=== PATIENT | female | born 1970 | race Caucasian/White ===

== ENCOUNTER → 2018-03-02 | Outpatient (CLI) | payer OTHER | LOC: M RAD 07:02 | DX: S02.19XS Other fracture of base of skull, sequela (principal) | CPT/HCPCS: 70450 ==

== ENCOUNTER 2018-12-28 12:29 | Inpatient (IN) | payer OTHER ==
[~2018-12-28] VITALS: Ht 152.4 cm; Wt 107.2 kg
[2018-12-28] MEDS ORDERED: RA C PO (14:02)
[2018-12-28] MEDS ORDERED: PRED20TA PO (14:07)
[2018-12-28] MEDS ORDERED: PROP10TA56 PO (14:07)
[2018-12-28] MEDS ORDERED: IBUP200C25 PO (14:07)
[2018-12-28] MEDS ORDERED: ZOLO100T PO (14:07)
[2018-12-28] MEDS ORDERED: MELA3TAB49 PO (14:07)
[2018-12-28] MEDS ORDERED: RANI1TAB38 PO (14:07)
[2018-12-28] MEDS ORDERED: TRAZ1TAB10 PO (14:07)
[2018-12-28] MEDS ORDERED: methylPREDNISolone INJ 125 MG/2 ML VIAL (J2930) IV ONE (14:45)
[2018-12-28] MEDS ORDERED: diphenhydrAMINE INJ 50MG/ML VIAL (J1200) IV ONE (14:45)
[2018-12-28] MEDS ORDERED: NS 1,000 ML IV ONE ×2 (14:45→20:00)
[2018-12-28] MEDS ORDERED: FAMOTIDINE INJ 20MG/2ML VIAL (S0028) IVP ONE (14:45)
[2018-12-28 15:10] LABS: BASO % 0.1 % (0.0-1.0); HEMATOCRIT 46.4 % (36.0-47.0); HEMOGLOBIN 15.6 g/dl (12.0-15.5); LYMPH # 2.1 10^3/uL (1.5-4.5); LYMPH % 9.9 % (24.0-44.0); MEAN CORPUSCULAR HEMOGLOBIN 28.7 pg (27.0-33.0); MEAN CORPUSCULAR HGB CONC 33.6 g/dl (32.0-36.5); MEAN CORPUSCULAR VOLUME 85.3 fl (80.0-96.0); MONO # 0.8 10^3/uL (0.0-0.8); MONO % 3.7 % (0.0-5.0); NEUTROPHILS # 18.5 10^3/uL (1.8-7.7); NEUTROPHILS % 85.8 % (36.0-66.0); PLATELET COUNT, AUTOMATED 507 10^3/uL (150-450); RED BLOOD COUNT 5.44 10^6/uL (4.00-5.40); WHITE BLOOD COUNT 21.5 10^3/uL (4.0-10.0)
[2018-12-28 15:36] LABS: ALBUMIN 3.1 GM/DL (3.2-5.2); ALT/SGPT 18 U/L (12-78); BILIRUBIN,DIRECT < 0.1 MG/DL (0.0-0.2); BILIRUBIN,TOTAL 0.3 MG/DL (0.2-1.0); C REACTIVE PROTEIN QUANTITATIV 0.89 MG/DL (0.00-0.30); ERYTHROCYTE SEDIMENTATION RATE 2 mm/hr (0-20); LIPASE 113 U/L (73-393); TOTAL PROTEIN 6.3 GM/DL (6.4-8.2)
[2018-12-28 16:01] LABS: MONO REFLEX EBV COMP NEGATIVE (NEGATIVE)
[2018-12-28] MEDS ORDERED: GI COCKTAIL 50ML BTL(HYOSCYAMINE/MAALOX/LIDOCAINE VISCOUS)(1:3:1) PO ONE (18:45)
[2018-12-28] MEDS ORDERED: hydrOXYzine 25 MG TAB PO STA (19:50)
[2018-12-28 20:14] LABS: CALCIUM LEVEL 8.5 MG/DL (8.5-10.1); CREATININE FOR GFR 1.19 MG/DL (0.55-1.30); GLOMERULAR FILTRATION RATE 51.8 (>58); POTASSIUM SERUM 3.6 MEQ/L (3.5-5.1)
[2018-12-28] MEDS ORDERED: predniSONE 20 MG TAB PO ONE (22:15)
[2018-12-28] MEDS ORDERED: diphenhydrAMINE 50 MG CAP PO ONE (22:15)
[2018-12-28] MEDS ORDERED: FUROSEMIDE 40 MG/4 ML VIAL (J1940) IV ONE (23:15)
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
[2018-12-28] MEDS ORDERED: MOBI4TAB PO (23:29)
[2018-12-28] MEDS ORDERED: HYDR12CA PO (23:29)
[2018-12-28] MEDS: methylPREDNISolone INJ 40 MG/1 ML VIAL (J2920) IV SCH (23:39)
[2018-12-29 01:05] VITALS: BP 124/80
[2018-12-29] MEDS: FAMOTIDINE IV BAG 20 MG in APPROPRIATE DILUENT 1 EA IV SCH ×2 (02:33→15:08)
[2018-12-29 06:00] VITALS: BP 121/73
[2018-12-29] MEDS: methylPREDNISolone INJ 40 MG/1 ML VIAL (J2920) IV SCH ×3 (06:13→22:54)
[2018-12-29 06:15] LABS: BASO % 0.1 % (0.0-1.0); EOS % 0.1 % (0.0-3.0); HEMOGLOBIN 13.7 g/dl (12.0-15.5); LYMPH # 1.5 10^3/uL (1.5-4.5); MEAN CORPUSCULAR HEMOGLOBIN 28.3 pg (27.0-33.0); MEAN CORPUSCULAR HGB CONC 33.4 g/dl (32.0-36.5); MEAN CORPUSCULAR VOLUME 84.7 fl (80.0-96.0); MONO # 0.4 10^3/uL (0.0-0.8); MONO % 2.9 % (0.0-5.0); NEUTROPHILS # 11.3 10^3/uL (1.8-7.7); NEUTROPHILS % 85.5 % (36.0-66.0); PLATELET COUNT, AUTOMATED 461 10^3/uL (150-450); RED BLOOD COUNT 4.84 10^6/uL (4.00-5.40); WHITE BLOOD COUNT 13.2 10^3/uL (4.0-10.0)
[2018-12-29 07:12] LABS: CALCIUM LEVEL 8.5 MG/DL (8.5-10.1); CREATININE FOR GFR 1.06 MG/DL (0.55-1.30); GLOMERULAR FILTRATION RATE 59.2 (>58); POTASSIUM SERUM 2.7 MEQ/L (3.5-5.1)
[2018-12-29] MEDS: ENOXAPARIN 40 MG/0.4 ML SYRINGE (J1650) SC SCH (08:07)
[2018-12-29] MEDS: NYSTATIN 100,000 UNITS/GM TOPICAL PWD 15 GM TOP SCH ×2 (08:07→21:16)
[2018-12-29] MEDS: amLODIPine 5 MG TAB PO SCH (08:07)
[2018-12-29] MEDS ORDERED: POTASSIUM CHLORIDE 10 MEQ SR TABLET PO ONE (09:00)
[2018-12-29] MEDS ORDERED: diphenhydrAMINE 25 MG CAP PO SCH (09:00)
[2018-12-29] MEDS: KCL 10MEQ/100ML SWI (KRUN) 10 MEQ in APPROPRIATE DILUENT 1 EA IV ONE ×2 (09:48→09:51)
[2018-12-29] MEDS: diphenhydrAMINE INJ 50MG/ML VIAL (J1200) IV PRN ×2 (13:18→21:16)
[2018-12-29 14:00] VITALS: BP 131/67
--- NOTE | 2018-12-29 14:06 | IPNPDOC ---
Date Seen The patient was seen on 12/29/18. Progress Note SUBJECTIVE: Patient was crying from IV K this AM otherwise noted to still be itchy. Lips still swell but had improved. Diffuse hives persistent. OBJECTIVE PHYSICAL EXAMINATION: VITAL SIGNS: Please see below. General: No acute distress, Alert, famous edematous. Eyes: Normal sclera, EOMI, YOANNA HENT: Atraumatic, neck supple, moist mucous membranes, R. lower lip swelling. Cardiovascular: Normal rate, normal rhythm. Pulmonary: Clear to auscultation b/l, no wheezing GI: Soft, nontender, nondistended Skin: Warm and dry Neuro: CN grossly intact. No focal deficits. Strengths equal b/l. Psych: oriented x 3 LABORATORY DATA, IMAGING STUDIES, MICROBIOLOGY: Please see below. DVT prophylaxis ordered?: Lovenox ASSESSMENT AND PLAN: 1. Angioedema - Likely from Lisinopril and not Augmentin. Had been discontinued. - c/w benadryl and solumedrol. - Swelling improving but still diffuse hives and throat discomfort. - ENT consulted. f/u recommendations. 2. Leukocytosis - Likely 2/2 steroid use. 3. HTN - BP controlled. - Add another agent if needed. Lisinopril had been held. VS, I&O, 24H, Fishbone Vital Signs/I&O Vital Signs Date Time Temp Pulse Resp B/P (MAP) Pulse Ox O2 Delivery O2 Flow Rate FiO2 12/29/18 08:07 96 141/95 12/29/18 06:00 98.0 18 95 12/29/18 00:28 Room Air I&O- Last 24 Hours up to 6 AM 12/29/18 06:00 Intake Total 2050 ml Output Total 0 ml Balance 2050 ml Laboratory Data 24H LABS Laboratory Tests 2 12/28/18 14:55: Immature Granulocyte % (Auto) 0.5, White Blood Count 21.5H, Red Blood Count 5.44H, Hemoglobin 15.6H, Hematocrit 46.4, Mean Corpuscular Volume 85.3, Mean Corpuscular Hemoglobin 28.7, Mean Corpuscular Hemoglobin Concent 33.6, Red Cell Distribution Width 13.2, Platelet Count 507H, Neutrophils (%) (Auto) 85.8H, Lymphocytes (%) (Auto) 9.9L, Monocytes (%) (Auto) 3.7, Eosinophils (%) (Auto) 0.0, Basophils (%) (Auto) 0.1, Neutrophils # (Auto) 18.5H, Lymphocytes # (Auto) 2.1, Monocytes # (Auto) 0.8, Eosinophils # (Auto) 0.0, Basophils # (Auto) 0.0, Nucleated Red Blood Cells % (auto) 0.0, Erythrocyte Sedimentation Rate 2, Anion Gap 11, Glomerular Filtration Rate 51.8L, Blood Urea Nitrogen 19H, Creatinine 1.19, Sodium Level 141, Potassium Level 3.6, Chloride Level 103, Carbon Dioxide Level 27, Calcium Level 8.5, Aspartate Amino Transf (AST/SGOT) 18, Alanine Telles otransferase (ALT/SGPT) 18, Alkaline Phosphatase 82, Total Bilirubin 0.3, Direct Bilirubin < 0.1, C-Reactive Protein, Quantitative 0.89H, Total Protein 6.3L, Albumin 3.1L, Albumin/Globulin Ratio 0.97L, Lipase 113, Monoscreen NEGATIVE 12/28/18 16:43: 12/29/18 05:55: Immature Granulocyte % (Auto) 0.4, White Blood Count 13.2H, Red Blood Count 4.84, Hemoglobin 13.7, Hematocrit 41.0, Mean Corpuscular Volume 84.7, Mean Corpuscular Hemoglobin 28.3, Mean Corpuscular Hemoglobin Concent 33.4, Red Cell Distribution Width 13.2, Platelet Count 461H, Neutrophils (%) (Auto) 85.5H, Lymphocytes (%) (Auto) 11.0L, Monocytes (%) (Auto) 2.9, Eosinophils (%) (Auto) 0.1, Basophils (%) (Auto) 0.1, Neutrophils # (Auto) 11.3H, Lymphocytes # (Auto) 1.5, Monocytes # (Auto) 0.4, Eosinophils # (Auto) 0.0, Basophils # (Auto) 0.0, Nucleated Red Blood Cells % (auto) 0.0, Anion Gap 9, Glomerular Filtration Rate 59.2, Blood Urea Nitrogen 19H, Creatinine 1.06, Sodium Level 141, Potassium Level 2.7#*L, Chloride Level 102, Carbon Dioxide Level 30, Calcium Level 8.5 CBC/BMP Laboratory Tests 12/28/18 14:55 Red Blood Count 5.44 H, Mean Corpuscular Volume 85.3, Mean Corpuscular He moglobin 28.7, Mean Corpuscular Hemoglobin Concent 33.6, Red Cell Distribution Width 13.2, Neutrophils (%) (Auto) 85.8 H, Lymphocytes (%) (Auto) 9.9 L, Monocytes (%) (Auto) 3.7, Eosinophils (%) (Auto) 0.0, Basophils (%) (Auto) 0.1, Neutrophils # (Auto) 18.5 H, Lymphocytes # (Auto) 2.1, Monocytes # (Auto) 0.8, Eosinophils # (Auto) 0.0, Basophils # (Auto) 0.0, Calcium Level 8.5 12/29/18 05:55 Red Blood Count 4.84, Mean Corpuscular Volume 84.7, Mean Corpuscular Hemoglobin 28.3, Mean Corpuscular Hemoglobin Concent 33.4, Red Cell Distribution Width 13.2, Neutrophils (%) (Auto) 85.5 H, Lymphocytes (%) (Auto) 11.0 L, Monocytes (%) (Auto) 2.9, Eosinophils (%) (Auto) 0.1, Basophils (%) (Auto) 0.1, Neutrophils # (Auto) 11.3 H, Lymphocytes # (Auto) 1.5, Monocytes # (Auto) 0.4, Eosinophils # (Auto) 0.0, Basophils # (Auto) 0.0, Calcium Level 8.5 VIRAJ GARAY MD Dec 29, 2018 14:06
[2018-12-29] MEDS: SERTRALINE 100 MG TAB PO SCH (21:16)
[2018-12-29] MEDS: traZODone 50 MG TAB PO SCH (21:16)
[2018-12-29 22:00] VITALS: BP 127/72
[2018-12-30] MEDS: FAMOTIDINE IV BAG 20 MG in APPROPRIATE DILUENT 1 EA IV SCH ×2 (03:01→15:13)
[2018-12-30] MEDS: diphenhydrAMINE INJ 50MG/ML VIAL (J1200) IV PRN ×3 (05:34→22:01)
[2018-12-30 06:00] VITALS: BP 144/72
[2018-12-30] MEDS: methylPREDNISolone INJ 40 MG/1 ML VIAL (J2920) IV SCH ×3 (06:09→21:18)
--- NOTE | 2018-12-30 06:48 | ECGEPIP ---
[facility] - ED Test Date: 2018-12-28 Pat Name: CARMINE ENG Department: Room: [place] [address] Gender: Female Cook Seafood: LYN : 1970 Requested By: JANUSZ SCHMITZ [facility] Order Number: [id number] Reading MD: Juan Grijalva Measurements Intervals [place] Rate: 73 P: 66 ID: [id number] QRS: 1 QRSD: 77 T: QT: 419 QTc: 464 Interpretive Statements SINUS RHYTHM NONSPECIFIC T-WAVE ABNORMALITY SIMILAR TO 06/02/15 Electronically Signed on 12-30-2018 6:47:35 EDT by Juan Grijalva
[2018-12-30 06:52] LABS: HEMATOCRIT 37.5 % (36.0-47.0); HEMOGLOBIN 12.3 g/dl (12.0-15.5); LYMPH # 1.9 10^3/uL (1.5-4.5); LYMPH % 20.6 % (24.0-44.0); MEAN CORPUSCULAR HEMOGLOBIN 28.5 pg (27.0-33.0); MEAN CORPUSCULAR HGB CONC 32.8 g/dl (32.0-36.5); MEAN CORPUSCULAR VOLUME 86.8 fl (80.0-96.0); MONO # 0.5 10^3/uL (0.0-0.8); MONO % 4.8 % (0.0-5.0); NEUTROPHILS # 6.9 10^3/uL (1.8-7.7); NEUTROPHILS % 73.3 % (36.0-66.0); PLATELET COUNT, AUTOMATED 409 10^3/uL (150-450); RED BLOOD COUNT 4.32 10^6/uL (4.00-5.40); WHITE BLOOD COUNT 9.4 10^3/uL (4.0-10.0)
[2018-12-30 07:19] LABS: CALCIUM LEVEL 8.5 MG/DL (8.5-10.1); CREATININE FOR GFR 1.09 MG/DL (0.55-1.30); GLOMERULAR FILTRATION RATE 57.3 (>58); POTASSIUM SERUM 3.2 MEQ/L (3.5-5.1)
[2018-12-30] MEDS ORDERED: POTASSIUM CHLORIDE 10 MEQ SR TABLET PO ONE (09:00)
[2018-12-30] MEDS: ENOXAPARIN 40 MG/0.4 ML SYRINGE (J1650) SC SCH (09:16)
[2018-12-30] MEDS: hydroCHLOROthiazide 12.5 MG CAPSULE PO SCH (09:16)
[2018-12-30] MEDS: amLODIPine 5 MG TAB PO SCH (09:16)
[2018-12-30] MEDS: NYSTATIN 100,000 UNITS/GM TOPICAL PWD 15 GM TOP SCH ×2 (09:17→21:19)
--- NOTE | 2018-12-30 12:11 | IPNPDOC ---
Date Seen The patient was seen on 12/30/18. Progress Note SUBJECTIVE: Patient appeared much more comfortable today. States that the hives have mostly resolved the lip is still swollen and has been itching quite a bit. Overall trending favorably. Seen by ENT yesterday. OBJECTIVE PHYSICAL EXAMINATION: VITAL SIGNS: Please see below. General: No acute distress, Alert, famous edematous. Eyes: Normal sclera, EOMI, YOANNA HENT: Atraumatic, neck supple, moist mucous membranes, R. lower lip swelling. Cardiovascular: Normal rate, normal rhythm. Pulmonary: Clear to auscultation b/l, no wheezing GI: Soft, nontender, nondistended Skin: Warm and dry Neuro: CN grossly intact. No focal deficits. Strengths equal b/l. Psych: oriented x 3 LABORATORY DATA, IMAGING STUDIES, MICROBIOLOGY: Please see below. DVT prophylaxis ordered?: Lovenox ASSESSMENT AND PLAN: 1. Angioedema - Likely from Lisinopril and not Augmentin. Had been discontinued. - c/w benadryl and solumedrol. - Swelling and hives improving but still with significant itch. d - ENT evaluated. No significant obstruction noted. 2. Leukocytosis - Likely 2/2 steroid use. 3. HTN - BP controlled. - Add another agent if needed. Lisinopril had been held. VS, I&O, 24H, Fishbone Vital Signs/I&O Vital Signs Date Time Temp Pulse Resp B/P (MAP) Pulse Ox O2 Delivery O2 Flow Rate FiO2 12/30/18 09:16 86 139/81 12/30/18 06:00 97.0 16 94 12/29/18 00:28 Room Air I&O- Last 24 Hours up to 6 AM 12/30/18 06:00 Intake Total 900 ml Output Total 2300 ml Balance -1400 ml Laboratory Data 24H LABS Laboratory Tests 2 12/30/18 06:39: Immature Granulocyte % (Auto) 1.3, White Blood Count 9.4, Red Blood Count 4.32, Hemoglobin 12.3, Hematocrit 37.5, Mean Corpuscular Volume 86.8, Mean Corpuscular Hemoglobin 28.5, Mean Corpuscular Hemoglobin Concent 32.8, Red Cell Distribution Width 13.3, Platelet Count 409, Neutrophils (%) (Auto) 73.3H, Lymphocytes (%) (Auto) 20.6L, Monocytes (%) (Auto) 4.8, Eosinophils (%) (Auto) 0.0, Basophils (%) (Auto) 0.0, Neutrophils # (Auto) 6.9, Lymphocytes # (Auto) 1.9, Monocytes # (Auto) 0.5, Eosinophils # (Auto) 0.0, Basophils # (Auto) 0.0, Nucleated Red Blood Cells % (auto) 0.0, Anion Gap 6L, Glomerular Filtration Rate 57.3L, Blood Urea Nitrogen 17, Creatinine 1.09, Sodium Level 142, Potassium Level 3.2L, Chloride Level 105, Carbon Dioxide Level 31, Calcium Level 8.5 CBC/BMP Laboratory Tests 12/30/18 06:39 Red Blood Count 4.32, Mean Corpuscular Volume 86.8, Mean Corpuscular Hemoglobin 28.5, Mean Corpuscular Hemoglobin Concent 32.8, Red Cell Distribution Width 13.3, Neutrophils (%) (Auto) 73.3 H, Lymphocytes (%) (Auto) 20.6 L, Monocytes (%) (Auto) 4.8, Eosinophils (%) (Auto) 0.0, Basophils (%) (Auto) 0.0, Neutrophils # (Auto) 6.9, Lymphocytes # (Auto) 1.9, Monocytes # (Auto) 0.5, Eosinophils # (Auto) 0.0, Basophils # (Auto) 0.0, Calcium Level 8.5 VIRAJ GARAY MD Dec 30, 2018 12:11
[2018-12-30 14:00] VITALS: BP 140/67
[2018-12-30] MEDS: traZODone 50 MG TAB PO SCH (21:18)
[2018-12-30] MEDS: SERTRALINE 100 MG TAB PO SCH (21:18)
[2018-12-30 22:00] VITALS: BP 137/68
[2018-12-31] MEDS: FAMOTIDINE IV BAG 20 MG in APPROPRIATE DILUENT 1 EA IV SCH ×2 (02:20→14:05)
[2018-12-31 06:00] VITALS: BP 141/77
[2018-12-31] MEDS: diphenhydrAMINE INJ 50MG/ML VIAL (J1200) IV PRN ×3 (06:08→22:10)
[2018-12-31 06:20] LABS: BASO % 0.2 % (0.0-1.0); HEMATOCRIT 38.9 % (36.0-47.0); HEMOGLOBIN 12.8 g/dl (12.0-15.5); LYMPH # 1.9 10^3/uL (1.5-4.5); LYMPH % 17.5 % (24.0-44.0); MEAN CORPUSCULAR HGB CONC 32.9 g/dl (32.0-36.5); MONO # 0.6 10^3/uL (0.0-0.8); MONO % 5.3 % (0.0-5.0); NEUTROPHILS # 8.3 10^3/uL (1.8-7.7); NEUTROPHILS % 75.1 % (36.0-66.0); PLATELET COUNT, AUTOMATED 400 10^3/uL (150-450); RED BLOOD COUNT 4.42 10^6/uL (4.00-5.40)
[2018-12-31 06:40] LABS: BLOOD UREA NITROGEN 16 MG/DL (7-18); CALCIUM LEVEL 8.3 MG/DL (8.5-10.1); CARBON DIOXIDE LEVEL 30 MEQ/L (21-32); CHLORIDE LEVEL 105 MEQ/L (98-107); CREATININE FOR GFR 1.01 MG/DL (0.55-1.30); GLOMERULAR FILTRATION RATE > 60.0 (>58); GLUCOSE, FASTING 148 MG/DL (70-100); POTASSIUM SERUM 3.1 MEQ/L (3.5-5.1); SODIUM LEVEL 141 MEQ/L (136-145)
[2018-12-31] MEDS ORDERED: POTASSIUM CHLORIDE 10 MEQ SR TABLET PO ONE (08:30)
[2018-12-31] MEDS: ENOXAPARIN 40 MG/0.4 ML SYRINGE (J1650) SC SCH (09:04)
[2018-12-31] MEDS: amLODIPine 5 MG TAB PO SCH (09:04)
[2018-12-31] MEDS: hydroCHLOROthiazide 12.5 MG CAPSULE PO SCH (09:04)
[2018-12-31] MEDS: methylPREDNISolone INJ 40 MG/1 ML VIAL (J2920) IV SCH ×2 (09:04→20:40)
[2018-12-31] MEDS: NYSTATIN 100,000 UNITS/GM TOPICAL PWD 15 GM TOP SCH ×2 (09:05→20:41)
--- NOTE | 2018-12-31 13:34 | IPNPDOC ---
Date Seen The patient was seen on 12/31/18. Progress Note SUBJECTIVE: Patient reports continuing to feel better. Hives almost completely resolved but itching has been persistent and severe. Benadryl was decreased to 25IV q8 but had to increase back up to 50. OBJECTIVE PHYSICAL EXAMINATION: VITAL SIGNS: Please see below. General: No acute distress, Alert, famous edematous. Eyes: Normal sclera, EOMI, YOANNA HENT: Atraumatic, neck supple, moist mucous membranes, R. lower lip swelling. Cardiovascular: Normal rate, normal rhythm. Pulmonary: Clear to auscultation b/l, no wheezing GI: Soft, nontender, nondistended Skin: Warm and dry Neuro: CN grossly intact. No focal deficits. Strengths equal b/l. Psych: oriented x 3 LABORATORY DATA, IMAGING STUDIES, MICROBIOLOGY: Please see below. DVT prophylaxis ordered?: Lovenox ASSESSMENT AND PLAN: 1. Angioedema - Likely from Lisinopril and not Augmentin. Had been discontinued. - c/w benadryl and solumedrol. - Swelling and hives improving but still with significant itch. - ENT evaluated. No significant obstruction noted. - Keep benadryl dose and titrate down solumedrol. - Likely can be discharged in the next 24 to 48 hours with continued improvement. 2. Leukocytosis - Likely 2/2 steroid use. 3. HTN - BP controlled. - Add another agent if needed. Lisinopril had been held. VS, I&O, 24H, Fishbone Vital Signs/I&O Vital Signs Date Time Temp Pulse Resp B/P (MAP) Pulse Ox O2 Delivery O2 Flow Rate FiO2 12/31/18 09:04 93 138/74 12/31/18 06:00 97.0 18 96 12/29/18 00:28 Room Air I&O- Last 24 Hours up to 6 AM 12/31/18 06:00 Intake Total 1960 ml Output Total 3800 ml Balance -1840 ml Laboratory Data 24H LABS Laboratory Tests 2 12/31/18 06:00: Immature Granulocyte % (Auto) 1.9, White Blood Count 11.0H, Red Blood Count 4.42, Hemoglobin 12.8, Hematocrit 38.9, Mean Corpuscular Volume 88.0, Mean Corpuscular Hemoglobin 29.0, Mean Corpuscular Hemoglobin Concent 32.9, Red Cell Distribution Width 13.2, Platelet Count 400, Neutrophils (%) (Auto) 75.1H, Lymphocytes (%) (Auto) 17.5L, Monocytes (%) (Auto) 5.3H, Eosinophils (%) (Auto) 0.0, Basophils (%) (Auto) 0.2, Neutrophils # (Auto) 8.3H, Lymphocytes # (Auto) 1.9, Monocytes # (Auto) 0.6, Eosinophils # (Auto) 0.0, Basophils # (Auto) 0.0, Nucleated Red Blood Cells % (auto) 0.0, Anion Gap 6L, Glomerular Filtration Rate > 60.0, Blood Urea Nitrogen 16, Creatinine 1.01, Sodium Level 141, Potassium Level 3.1L, Chloride Level 105, Carbon Dioxide Level 30, Calcium Level 8.3L CBC/BMP Laboratory Tests 12/31/18 06:00 Red Blood Count 4.42, Mean Corpuscular Volume 88.0, Mean Corpuscular Hemoglobin 29.0, Mean Corpuscular Hemoglobin Concent 32.9, Red Cell Distribution Width 13.2, Neutrophils (%) (Auto) 75.1 H, Lymphocytes (%) (Auto) 17.5 L, Monocytes (%) (Auto) 5.3 H, Eosinophils (%) (Auto) 0.0, Basophils (%) (Auto) 0.2, Neutrophils # (Auto) 8.3 H, Lymphocytes # (Auto) 1.9, Monocytes # (Auto) 0.6, Eosinophils # (Auto) 0.0, Basophils # (Auto) 0.0, Calcium Level 8.3 L VIRAJ GARAY MD Dec 31, 2018 13:34
[2018-12-31 14:00] VITALS: BP 140/88
[2018-12-31 14:24] LABS: EBV AB TO NUCLEAR ANTIGEN >600.0 U/mL (0.0-17.9); EBV VIRAL CAPSID AG IgM <36.0 U/mL (0.0-35.9)
[2018-12-31] MEDS: traZODone 50 MG TAB PO SCH (20:40)
[2018-12-31] MEDS: SERTRALINE 100 MG TAB PO SCH (20:40)
[2018-12-31 22:00] VITALS: BP 144/73
[2019-01-01 00:06] LABS: C1 ESTER INHIB. NON FUNCTIONAL 29 mg/dL (21-39); C1 ESTERASE INHIB. FUNCTIONAL 92 (.)
[2019-01-01] MEDS: FAMOTIDINE IV BAG 20 MG in APPROPRIATE DILUENT 1 EA IV SCH ×2 (02:43→15:01)
[2019-01-01 06:00] VITALS: BP 133/84
[2019-01-01] MEDS: diphenhydrAMINE INJ 50MG/ML VIAL (J1200) IV PRN ×3 (06:28→23:13)
[2019-01-01 06:32] LABS: BASO % 0.1 % (0.0-1.0); HEMATOCRIT 39.6 % (36.0-47.0); LYMPH # 2.1 10^3/uL (1.5-4.5); MEAN CORPUSCULAR HEMOGLOBIN 28.8 pg (27.0-33.0); MEAN CORPUSCULAR HGB CONC 32.8 g/dl (32.0-36.5); MEAN CORPUSCULAR VOLUME 87.8 fl (80.0-96.0); MONO # 0.8 10^3/uL (0.0-0.8); MONO % 6.9 % (0.0-5.0); NEUTROPHILS # 8.7 10^3/uL (1.8-7.7); NEUTROPHILS % 73.8 % (36.0-66.0); PLATELET COUNT, AUTOMATED 414 10^3/uL (150-450); RED BLOOD COUNT 4.51 10^6/uL (4.00-5.40); WHITE BLOOD COUNT 11.7 10^3/uL (4.0-10.0)
[2019-01-01 06:59] LABS: BLOOD UREA NITROGEN 14 MG/DL (7-18); CALCIUM LEVEL 8.3 MG/DL (8.5-10.1); CARBON DIOXIDE LEVEL 31 MEQ/L (21-32); CHLORIDE LEVEL 103 MEQ/L (98-107); GLOMERULAR FILTRATION RATE > 60.0 (>58); GLUCOSE, FASTING 128 MG/DL (70-100); POTASSIUM SERUM 3.2 MEQ/L (3.5-5.1); SODIUM LEVEL 141 MEQ/L (136-145)
[2019-01-01] MEDS ORDERED: POTASSIUM CHLORIDE 10 MEQ SR TABLET PO ONE (07:30)
[2019-01-01] MEDS: methylPREDNISolone INJ 40 MG/1 ML VIAL (J2920) IV SCH (07:52)
[2019-01-01] MEDS: ENOXAPARIN 40 MG/0.4 ML SYRINGE (J1650) SC SCH (07:52)
[2019-01-01] MEDS: hydroCHLOROthiazide 12.5 MG CAPSULE PO SCH (07:53)
[2019-01-01] MEDS: NYSTATIN 100,000 UNITS/GM TOPICAL PWD 15 GM TOP SCH ×2 (07:53→20:15)
[2019-01-01] MEDS: amLODIPine 5 MG TAB PO SCH (07:53)
--- NOTE | 2019-01-01 11:02 | IPNPDOC ---
Date Seen The patient was seen on 01/01/19. Progress Note SUBJECTIVE: Patient reports swelling had improved but itching is persistent and severe, particularly at night. No acute events reported overnight. Telemetry was taken off due to increase itching but no events while patient was on it. OBJECTIVE PHYSICAL EXAMINATION: VITAL SIGNS: Please see below. General: No acute distress, Alert, famous edematous. Eyes: Normal sclera, EOMI, YOANNA HENT: Atraumatic, neck supple, moist mucous membranes Cardiovascular: Normal rate, normal rhythm. Pulmonary: Clear to auscultation b/l, no wheezing GI: Soft, nontender, nondistended Skin: Warm and dry. Excoriations in multiple sites including chest, arms and LE from scratching. Neuro: CN grossly intact. No focal deficits. Strengths equal b/l. Psych: oriented x 3 LABORATORY DATA, IMAGING STUDIES, MICROBIOLOGY: Please see below. DVT prophylaxis ordered?: Lovenox ASSESSMENT AND PLAN: 1. Angioedema - Likely from Lisinopril and not Augmentin. Had been discontinued. - c/w benadryl and solumedrol. - Swelling and hives improving but still with significant itch. - ENT evaluated. No significant obstruction noted. - Keep benadryl dose and titrate down solumedrol. - Will aim to discharge tomorrow on PO benadryl and prednisone. 2. Leukocytosis - Likely 2/2 steroid use. 3. HTN - BP controlled. - Add another agent if needed. Lisinopril had been held. VS, I&O, 24H, Fishbone Vital Signs/I&O Vital Signs Date Time Temp Pulse Resp B/P (MAP) Pulse Ox O2 Delivery O2 Flow Rate FiO2 01/01/19 07:53 76 133/84 01/01/19 06:00 96.4 15 96 12/29/18 00:28 Room Air I&O- Last 24 Hours up to 6 AM 01/01/19 06:00 Intake Total 1050 ml Output Total 1425 ml Balance -375 ml Laboratory Data 24H LABS Laboratory Tests 2 01/01/19 05:49: Immature Granulocyte % (Auto) 1.2, White Blood Count 11.7H, Red Blood Count 4.51, Hemoglobin 13.0, Hematocrit 39.6, Mean Corpuscular Volume 87.8, Mean Corpuscular Hemoglobin 28.8, Mean Corpuscular Hemoglobin Concent 32.8, Red Cell Distribution Width 13.3, Platelet Count 414, Neutrophils (%) (Auto) 73.8H, Lymphocytes (%) (Auto) 18.0L, Monocytes (%) (Auto) 6.9H, Eosinophils (%) (Auto) 0.0, Basophils (%) (Auto) 0.1, Neutrophils # (Auto) 8.7H, Lymphocytes # (Auto) 2.1, Monocytes # (Auto) 0.8, Eosinophils # (Auto) 0.0, Basophils # (Auto) 0.0, Nucleated Red Blood Cells % (auto) 0.0, Anion Gap 7L, Glomerular Filtration Rate > 60.0, Blood Urea Nitrogen 14, Creatinine 0.90, Sodium Level 141, Potassium Le christopher 3.2L, Chloride Level 103, Carbon Dioxide Level 31, Calcium Level 8.3L CBC/BMP Laboratory Tests 01/01/19 05:49 Red Blood Count 4.51, Mean Corpuscular Volume 87.8, Mean Corpuscular Hemoglobin 28.8, Mean Corpuscular Hemoglobin Concent 32.8, Red Cell Distribution Width 13.3, Neutrophils (%) (Auto) 73.8 H, Lymphocytes (%) (Auto) 18.0 L, Monocytes (%) (Auto) 6.9 H, Eosinophils (%) (Auto) 0.0, Basophils (%) (Auto) 0.1, Neutrophils # (Auto) 8.7 H, Lymphocytes # (Auto) 2.1, Monocytes # (Auto) 0.8, Eosinophils # (Auto) 0.0, Basophils # (Auto) 0.0, Calcium Level 8.3 L VIRAJ GARAY MD Jan 01, 2019 11:02
[2019-01-01 14:00] VITALS: BP 141/77
--- NOTE | 2019-01-01 14:13 | CR ---
DATE OF ADMISSION: 01/01/2019 Ms. Diaz is a 48-year-old lady who presented with a history of swelling of her lips and mouth. This started after she took ampicillin for a problem with her throat. She has had previous dental work done. She presented with swelling of her lips, worse on the right side. This had improved. She felt like there was something lower down in her throat. She was able to swallow well. She had no problems with her breathing. PHYSICAL EXAMINATION: She has a bit of edema of her lower lip on the right side. Tongue looks normal. Examination of the oropharynx, hypopharynx and larynx all look normal, as viewed by nasopharyngolaryngoscopy. IMPRESSION AND PLAN: 1. Allergic angioedema. This is improving on the present treatment. I will follow her as necessary.
[2019-01-01] MEDS: traZODone 50 MG TAB PO SCH (20:14)
[2019-01-01] MEDS: SERTRALINE 100 MG TAB PO SCH (20:14)
[2019-01-01 22:00] VITALS: BP 131/64
[2019-01-02] MEDS: FAMOTIDINE IV BAG 20 MG in APPROPRIATE DILUENT 1 EA IV SCH ×2 (02:40→15:49)
[2019-01-02 06:00] VITALS: BP 122/72
[2019-01-02 06:34] LABS: BASO % 0.1 % (0.0-1.0); EOS # 0.1 10^3/uL (0.0-0.50); EOS % 0.9 % (0.0-3.0); HEMATOCRIT 39.9 % (36.0-47.0); LYMPH # 4.3 10^3/uL (1.5-4.5); LYMPH % 35.6 % (24.0-44.0); MEAN CORPUSCULAR HEMOGLOBIN 28.3 pg (27.0-33.0); MEAN CORPUSCULAR HGB CONC 32.6 g/dl (32.0-36.5); MEAN CORPUSCULAR VOLUME 86.9 fl (80.0-96.0); MONO # 0.7 10^3/uL (0.0-0.8); MONO % 5.8 % (0.0-5.0); NEUTROPHILS # 6.8 10^3/uL (1.8-7.7); NEUTROPHILS % 56.8 % (36.0-66.0); PLATELET COUNT, AUTOMATED 396 10^3/uL (150-450); RED BLOOD COUNT 4.59 10^6/uL (4.00-5.40)
[2019-01-02 07:09] LABS: BLOOD UREA NITROGEN 14 MG/DL (7-18); CALCIUM LEVEL 8.6 MG/DL (8.5-10.1); CARBON DIOXIDE LEVEL 33 MEQ/L (21-32); CHLORIDE LEVEL 102 MEQ/L (98-107); CREATININE FOR GFR 0.99 MG/DL (0.55-1.30); GLOMERULAR FILTRATION RATE > 60.0 (>58); GLUCOSE, FASTING 101 MG/DL (70-100); POTASSIUM SERUM 2.9 MEQ/L (3.5-5.1); SODIUM LEVEL 142 MEQ/L (136-145)
[2019-01-02] MEDS ORDERED: POTASSIUM CHLORIDE 10 MEQ SR TABLET PO ONE ×2 (07:45→10:00)
[2019-01-02 08:18] LABS: MAGNESIUM LEVEL 2.4 MG/DL (1.8-2.4)
[2019-01-02] MEDS: amLODIPine 5 MG TAB PO SCH (09:00)
[2019-01-02] MEDS ORDERED: methylPREDNISolone INJ 40 MG/1 ML VIAL (J2920) IV SCH (09:00)
[2019-01-02] MEDS: hydroCHLOROthiazide 12.5 MG CAPSULE PO SCH (09:28)
[2019-01-02] MEDS: predniSONE 20 MG TAB PO SCH (09:28)
[2019-01-02] MEDS: diphenhydrAMINE 50 MG CAP PO PRN ×3 (09:28→22:51)
[2019-01-02] MEDS: ENOXAPARIN 40 MG/0.4 ML SYRINGE (J1650) SC SCH (09:28)
[2019-01-02] MEDS: NYSTATIN 100,000 UNITS/GM TOPICAL PWD 15 GM TOP SCH ×2 (09:29→20:55)
[2019-01-02] MEDS: ACETAMINOPHEN TAB 650MG DOSE (2X325MG) PO PRN ×2 (11:53→20:53)
--- NOTE | 2019-01-02 13:51 | IPNPDOC ---
Date Seen The patient was seen on 01/02/19. Progress Note SUBJECTIVE: Patient still complaints of severe itch, although better. Wants to switch to PO meds today but afraid of going home as she does not know how she would tolerate it. Plan to switch steroids and benadryl to PO and observe with plan to d/c in AM. OBJECTIVE PHYSICAL EXAMINATION: VITAL SIGNS: Please see below. General: No acute distress, Alert, famous edematous. Eyes: Normal sclera, EOMI, YOANNA HENT: Atraumatic, neck supple, moist mucous membranes Cardiovascular: Normal rate, normal rhythm. Pulmonary: Clear to auscultation b/l, no wheezing GI: Soft, nontender, nondistended Skin: Warm and dry. Excoriations in multiple sites including chest, arms and LE from scratching. Neuro: CN grossly intact. No focal deficits. Strengths equal b/l. Psych: oriented x 3 LABORATORY DATA, IMAGING STUDIES, MICROBIOLOGY: Please see below. DVT prophylaxis ordered?: Lovenox ASSESSMENT AND PLAN: 1. Angioedema - Likely from Lisinopril and not Augmentin. Had been discontinued. - c/w benadryl and solumedrol. - Swelling and hives improving but still with significant itch. - ENT evaluated. No significant obstruction noted. - Keep benadryl dose and titrate down solumedrol. - Will aim to discharge tomorrow on PO benadryl and prednisone. 2. Leukocytosis - Likely 2/2 steroid use. 3. HTN - BP controlled. - Started on Norvasc 5 mg, need this on discharge. Lisinopril and HCTZ had been held. 4. Hypokalemia - Persistent. Mg noted to be normal. - Likely 2/2 HCTZ. Had been discontinued. - Can likely discharge with 20-40 mg PO K daily and to follow up with PMD for BMP check upon discharge. VS, I&O, 24H, Fishbone Vital Signs/I&O Vital Signs Date Time Temp Pulse Resp B/P (MAP) Pulse Ox O2 Delivery O2 Flow Rate FiO2 01/02/19 09:00 100 136/76 01/02/19 06:00 97.1 15 94 12/29/18 00:28 Room Air I&O- Last 24 Hours up to 6 AM 01/02/19 06:00 Intake Total 2680 ml Output Total 800 ml Balance 1880 ml Laboratory Data 24H LABS Laboratory Tests 2 01/02/19 05:43: Immature Granulocyte % (Auto) 0.8, White Blood Count 12.0H, Red Blood Count 4.59, Hemoglobin 13.0, Hematocrit 39.9, Mean Corpuscular Volume 86.9, Mean Cor puscular Hemoglobin 28.3, Mean Corpuscular Hemoglobin Concent 32.6, Red Cell Distribution Width 13.6, Platelet Count 396, Neutrophils (%) (Auto) 56.8, Lymphocytes (%) (Auto) 35.6, Monocytes (%) (Auto) 5.8H, Eosinophils (%) (Auto) 0.9, Basophils (%) (Auto) 0.1, Neutrophils # (Auto) 6.8, Lymphocytes # (Auto) 4.3, Monocytes # (Auto) 0.7, Eosinophils # (Auto) 0.1, Basophils # (Auto) 0.0, Nucleated Red Blood Cells % (auto) 0.0, Anion Gap 7L, Glomerular Filtration Rate > 60.0, Blood Urea Nitrogen 14, Creatinine 0.99, Sodium Level 142, Potassium Level 2.9*L, Chloride Level 102, Carbon Dioxide Level 33H, Calcium Level 8.6, Magnesium Level 2.4 CBC/BMP Laboratory Tests 01/02/19 05:43 Red Blood Count 4.59, Mean Corpuscular Volume 86.9, Mean Corpuscular Hemoglobin 28.3, Mean Corpuscular Hemoglobin Concent 32.6, Red Cell Distribution Width 13.6, Neutrophils (%) (Auto) 56.8, Lymphocytes (%) (Auto) 35.6, Monocytes (%) (Auto) 5.8 H, Eosinophils (%) (Auto) 0.9, Basophils (%) (Auto) 0.1, Neutrophils # (Auto) 6.8, Lymphocytes # (Auto) 4.3, Monocytes # (Auto) 0.7, Eosinophils # (Auto) 0.1, Basophils # (Auto) 0.0, Calcium Level 8.6 VIRAJ GARAY MD Jan 02, 2019 13:51
[2019-01-02 14:00] VITALS: BP 153/85
[2019-01-02] MEDS: SERTRALINE 100 MG TAB PO SCH (20:54)
[2019-01-02] MEDS: traZODone 50 MG TAB PO SCH (20:54)
[2019-01-02 22:00] VITALS: BP 138/77
[2019-01-03] MEDS: FAMOTIDINE IV BAG 20 MG in APPROPRIATE DILUENT 1 EA IV SCH (03:28)
[2019-01-03 06:00] VITALS: BP 147/81
[2019-01-03 07:15] LABS: BASO % 0.2 % (0.0-1.0); EOS # 0.1 10^3/uL (0.0-0.50); EOS % 1.1 % (0.0-3.0); HEMATOCRIT 38.2 % (36.0-47.0); HEMOGLOBIN 12.5 g/dl (12.0-15.5); LYMPH # 3.8 10^3/uL (1.5-4.5); LYMPH % 34.2 % (24.0-44.0); MEAN CORPUSCULAR HEMOGLOBIN 28.5 pg (27.0-33.0); MEAN CORPUSCULAR HGB CONC 32.7 g/dl (32.0-36.5); MONO # 0.6 10^3/uL (0.0-0.8); MONO % 5.5 % (0.0-5.0); NEUTROPHILS # 6.5 10^3/uL (1.8-7.7); NEUTROPHILS % 58.5 % (36.0-66.0); PLATELET COUNT, AUTOMATED 373 10^3/uL (150-450); RED BLOOD COUNT 4.39 10^6/uL (4.00-5.40); WHITE BLOOD COUNT 11.2 10^3/uL (4.0-10.0)
[2019-01-03 07:47] LABS: BLOOD UREA NITROGEN 13 MG/DL (7-18); CALCIUM LEVEL 8.4 MG/DL (8.5-10.1); CARBON DIOXIDE LEVEL 33 MEQ/L (21-32); CHLORIDE LEVEL 103 MEQ/L (98-107); CREATININE FOR GFR 0.89 MG/DL (0.55-1.30); GLOMERULAR FILTRATION RATE > 60.0 (>58); GLUCOSE, FASTING 105 MG/DL (70-100); POTASSIUM SERUM 3.2 MEQ/L (3.5-5.1); SODIUM LEVEL 142 MEQ/L (136-145)
[2019-01-03] MEDS ORDERED: POTASSIUM CHLORIDE 10 MEQ SR TABLET PO ONE (08:00)
[2019-01-03] MEDS: ENOXAPARIN 40 MG/0.4 ML SYRINGE (J1650) SC SCH ×2 (08:19→09:00)
[2019-01-03] MEDS: ACETAMINOPHEN TAB 650MG DOSE (2X325MG) PO PRN (08:20)
[2019-01-03] MEDS: predniSONE 20 MG TAB PO SCH (08:20)
[2019-01-03] MEDS: diphenhydrAMINE 50 MG CAP PO PRN (08:21)
[2019-01-03 08:25] VITALS: BP 142/80
[2019-01-03] MEDS: amLODIPine 5 MG TAB PO SCH (08:25)
[2019-01-03] MEDS: NYSTATIN 100,000 UNITS/GM TOPICAL PWD 15 GM TOP SCH (08:29)
[2019-01-03] MEDS ORDERED: AMLO5TAB6 PO (11:20)
[2019-01-03] MEDS ORDERED: PRED20TA PO ×2 (11:20→12:54)
[2019-01-03] MEDS ORDERED: DIPH50CA PO (11:20)
[2019-01-03] MEDS ORDERED: POTA1TAB14 PO (11:22)
--- NOTE | 2019-01-03 22:45 | IPNPDOC ---
Subjective Date Seen The patient was seen on 01/03/19. Subjective Chief Complaint/HPI 48f with hx of anxiety, htn, p/w urticaria and angioedema. felt to be due to either amoxicillin or lisinopril. both have been dced. pt then became hypokalemic and hctz was also dced. She feels better today on oral steroids with only some itching in her palms. General: Reports: Normal Appetite; Denies: Chills, Night Sweats, Fatigue, Malaise Constitutional: Denies: Chills, Fever, Night Sweats Eyes: Denies: Pain, Vision change ENT: Reports: Other Symptoms Skin: Reports: Rash, Itching Pulmonary: Denies: Dyspnea, Cough Cardiovascular: Denies: Chest Pain, Palpitations, Orthopnea, Paroxysmal Noc. Dyspnea, Lt Headedness Gastrointestinal: Denies: Nausea, Vomiting, Abdominal Pain, Diarrhea, Constipation Genitourinary: Denies: Dysuria, Frequency, Incontinence, Retention Hematologic: Denies: Bruising, Bleeding Excessively Musculoskeletal: Denies: Neck Pain, Back Pain, Joint Pain, Muscle Pain, Spasms Neurological: Denies: Weakness, Numbness, Change in speech, Confusion Psych: Reports: Mood Normal; Denies: Depression, Memory Issues Objective Physical Examination General Exam: Positive: Alert, Cooperative, No Acute Distress Eye Exam: Positive: PERRLA, EOMI; Negative: Sclera icteric ENT Exam: Positive: Tongue Midline, Other ENT (lips swollen) Neck Exam: Positive: Supple; Negative: JVD, thyromegaly Chest Exam: Positive: Clear to auscultation, Normal air movement Heart Exam: Positive: Rate Normal, Regular Rhythm, Normal S1, Normal S2; Negative: Murmurs, Rubs Abdomen Exam: Positive: Normal bowel sounds, Soft; Negative: Tenderness, Hepatospenomegaly Extremity Exam: Positive: Edema; Negative: Clubbing, Cyanosis, Normal pulses, Tenderness, Swelling, Other Skin Exam: Positive: Rash (hives all over the body more in abdomen and legs. ), Breakdown (lower abdomen intertriginous fungal infection), Lesion Neuro Exam: Positive: Normal Gait, Normal Speech, Reflexes 2+ Psych Exam: Positive: Anxiety, Memory Intact, Oriented x 3 Assessment /Plan Assessment 48f p/w hives and angioedema improved continue prednisone taper and benadryl hypokalemia improving with supplementation and off hctz dced home with kcl to follow up in a few days to check chemistry htn continue bb and norvasc dced home Plan/VTE VTE Prophylaxis Ordered?: Yes VS, [facility]O, [facility] Vital Signs Date Time Temp Pulse Resp B/P (MAP) Pulse Ox O2 Delivery O2 Flow Rate FiO2 01/03/19 08:25 142/80 01/03/19 06:00 97.5 68 16 96 12/29/18 00:28 Room Air I&O- Last 24 Hours up to 6 AM 01/03/19 06:00 Intake Total 2020 ml Output Total 2850 ml Balance -830 ml Laboratory Data 24H LABS Laboratory Tests 2 01/03/19 07:00: Immature Granulocyte % (Auto) 0.5, White Blood Count 11.2H, Red Blood Count 4.39, Hemoglobin 12.5, Hematocrit 38.2, Mean Corpuscular Volume 87.0, Mean Corpuscular Hemoglobin 28.5, Mean Corpuscular Hemoglobin Concent 32.7, Red Cell Distribution Width 13.6, Platelet Count 373, Neutrophils (%) (Auto) 58.5, Lymphocytes (%) (Auto) 34.2, Monocytes (%) (Auto) 5.5H, Eosinophils (%) (Auto) 1.1, Basophils (%) (Auto) 0.2, Neutrophils # (Auto) 6.5, Lymphocytes # (Auto) 3.8, Monocytes # (Auto) 0.6, Eosinophils # (Auto) 0.1, Basophils # (Auto) 0.0, Nucleated Red Blood Cells % (auto) 0.0, Anion Gap 6L, Glomerular Filtration Rate > 60.0, Blood Urea Nitrogen 13, Creatinine 0.89, Sodium Level 142, Potassium Level 3.2L, Chloride Level 103, Carbon Dioxide Level 33H, Calcium Level 8.4L CBC/BMP Laboratory Tests 01/03/19 07:00 Red Blood Count 4.39, Mean Corpuscular Volume 87.0, Mean Corpuscular Hemoglobin 28.5, Mean Corpuscular Hemoglobin Concent 32.7, Red Cell Distribution Width 13.6, Neutrophils (%) (Auto) 58.5, Lymphocytes (%) (Auto) 34.2, Monocytes (%) (Auto) 5.5 H, Eosinophils (%) (Auto) 1.1, Basophils (%) (Auto) 0.2, Neutrophils # (Auto) 6.5, Lymphocytes # (Auto) 3.8, Monocytes # (Auto) 0.6, Eosinophils # (A uto) 0.1, Basophils # (Auto) 0.0, Calcium Level 8.4 L GAGANDEEP BEAL MD Jan 03, 2019 22:44
== END 2019-01-03 13:20 | disposition home or self-care (01) | DRG 916 ==
LOC: M ED 12:29 → M ED INP 23:14 → M MSPAV 12-29 01:10
PROVIDERS: ADMIT Internal Medicine Nephrology; ATTEND Hospitalist
DX: T78.3XXA Angioneurotic edema, initial encounter (principal); T43.4X5A Adverse effect of butyrophenone and thiothixene neuroleptics, initial encounter; F43.10 Post-traumatic stress disorder, unspecified; T36.0X5A Adverse effect of penicillins, initial encounter; E87.6 Hypokalemia; F34.1 Dysthymic disorder; R00.2 Palpitations; G43.909 Migraine, unspecified, not intractable, without status migrainosus; I10 Essential (primary) hypertension; Z86.73 Personal history of transient ischemic attack (TIA), and cerebral infarction without residual deficits; Z79.899 Other long term (current) drug therapy; Z88.0 Allergy status to penicillin; Z88.8 Allergy status to other drugs, medicaments and biological substances

== ENCOUNTER → 2019-04-03 | Outpatient (CLI) | payer OTHER ==
[~2019-04-03] MED LIST: AMLO5TAB6 PO; DIPH50CA PO; GASTROGRAFIN SOLUTION 30ML (Q9963) As Ordered ONE; HYDR12CA PO; IBUP200C25 PO; ISOVUE-370 76% 100ML VIAL (Q9967) As Ordered ONE; MELA3TAB49 PO; MOBI4TAB PO; POTA1TAB14 PO; PRED20TA PO; PROP10TA56 PO; RA C PO; RANI1TAB38 PO; TRAZ1TAB10 PO; ZOLO100T PO
--- NOTE | 2019-04-04 04:51 | REP ---
Clinical: Left lower quadrant pain. Technique: Axial contrast enhanced images from the lung bases to the pubic symphysis using oral (per protocol) and 100 ml Isovue 370 intravenous contrast material with precontrast images of the abdomen as well as coronal and sagittal re-formations. Comparison: 04/27/2011 Findings: Lung bases are clear. Visualized heart and pericardium normal. Fatty infiltration to the liver noted without focal hepatic lesion. Prior cholecystectomy. Spleen, pancreas, bilateral adrenal glands and kidneys are normal. The enteric system is without obstruction or acute inflammatory process. Pelvis demonstrates collapsed grossly normal bladder and suspected subtle myomatous changes to the uterus. No ascites. No free air. No adenopathy. Abdominal aorta without aneurysm or dissection. Musculoskeletal structures are intact. Impression: No acute abdominopelvic pathology appreciated. Subtle myomatous changes to the uterus. Electronically Signed by Tejas Monteiro MD 04/04/2019 04:42 A
== END ==
LOC: M RAD 15:57
PROVIDERS: ATTEND Family Medicine
DX: R10.32 Left lower quadrant pain (principal)

== ENCOUNTER → 2019-05-21 | Outpatient (CLI) | payer OTHER ==
[~2019-05-21] MED LIST changes: -GASTROGRAFIN SOLUTION 30ML (Q9963) As Ordered ONE; -ISOVUE-370 76% 100ML VIAL (Q9967) As Ordered ONE
--- NOTE | 2019-05-22 03:03 | REP ---
Clinical: Pelvic pain . Technique: Transabdominal pelvic ultrasound followed by transvaginal examination for better evaluation of the endometrium and adnexa with color Doppler evaluation of the ovaries. Findings: Bladder is collapsed. Evaluation is significantly limited due to body habitus and associated technical factors. Heterogeneous anteverted uterus measures 8.2 x 4.8 x 4.6 cm with suggestions for 1.5 cm posterior intramural fibroid. Endometrial complex is incompletely evaluated/visualized. Bilateral ovaries are not visualized. No pelvic fluid or discrete pelvic mass lesion. Impression: 1. Limited examination suggesting 1.5 cm posterior intramural fibroid. 2. Incomplete evaluation of the endometrial complex. 3. Nonvisualization of the bilateral ovaries. Electronically Signed by Tejas Monteiro MD 05/22/2019 02:55 A
== END ==
LOC: M RAD 08:35
PROVIDERS: ATTEND Obstetrics & Gynecology
DX: R10.32 Left lower quadrant pain (principal); R93.9 Diagnostic imaging inconclusive due to excess body fat of patient

== ENCOUNTER → 2019-09-27 | Outpatient (CLI) | payer OTHER ==
--- NOTE | 2019-09-27 15:17 | REP ---
UNILATERAL DIAGNOSTIC MAMMOGRAM RIGHT BREAST WITH 3D TOMOSYNTHESIS, RIGHT BREAST ULTRASOUND: There is no family history of breast cancer. Tyrer-zi lifetime risk of breast cancer is 9.7%. There are no prior studies for comparison. The patient reportedly has a palpable lump in the medial right breast, which is marked on the skin. MLO, ML, and CC views of the right breast performed with 3D tomosynthesis. There is mild to moderate scattered fibroglandular tissue. No discrete mass or architectural distortion is seen. No clustered microcalcifications are seen. Real-time sonographic evaluation of the medial right breast is performed in the region of the palpable lump. There are several subcentimeter cysts in this region. There are approximately 5 small cystic structures. Maximum diameter of one of the oval cysts reaches 10 mm. No solid nodule is seen. IMPRESSION: BIRADS 2: BI-RADS/ACR category 2 mammogram. Benign Findings. ACR 2 benign. No mass or clustered microcalcifications in the right breast. There is no mammographic abnormality in the medial right breast at the site of the reported palpable lump. By ultrasound, there are 5 small cystic structures in the region of the 3-o'clock position at the site of the palpable lump. Largest has a maximum diameter of 1 cm. The findings are ACR2 benign. Recommend mammography of the left breast as no prior left breast mammogram has been performed. This mammogram was interpreted with the aid of an FDA-approved computer-aided detection system. The patient states that she or he has not had a clinical breast exam in over a year. Patient letter requested is M2.
== END ==
LOC: M WHC 12:52
PROVIDERS: ATTEND Internal Medicine
DX: N63.12 Unspecified lump in the right breast, upper inner quadrant (principal)
CPT/HCPCS: 76642; 77065; G0279

== ENCOUNTER 2021-09-14 13:26 | Emergency (ER) | payer OTHER ==
[~2021-09-14] VITALS: Ht 152.4 cm; Wt 84.5 kg
[~2021-09-14 13:26] MED LIST changes: +AMLO1TAB24 PO; -AMLO5TAB6 PO
[2021-09-14] MEDS ORDERED: METO1TAB87 (13:38)
[2021-09-14] MEDS ORDERED: TETRACAINE 0.5% OPHTH SOLN 4ML OU ONE (14:15)
[2021-09-14 14:17] LABS: BASO % 0.6 % (0.0-1.0); EOS # 0.1 10^3/uL (0.0-0.5); EOS % 1.2 % (0.0-3.0); HEMATOCRIT 43.1 % (36.0-47.0); HEMOGLOBIN 13.7 g/dl (12.0-15.5); LYMPH % 29.7 % (24.0-44.0); MEAN CORPUSCULAR HEMOGLOBIN 28.8 pg (27.0-33.0); MEAN CORPUSCULAR HGB CONC 31.8 g/dl (32.0-36.5); MEAN CORPUSCULAR VOLUME 90.5 fl (80.0-96.0); MONO # 0.3 10^3/uL (0.0-0.8); MONO % 5.1 % (2.0-8.0); NEUTROPHILS # 4.2 10^3/uL (1.5-8.5); NEUTROPHILS % 63.2 % (36.0-66.0); PLATELET COUNT, AUTOMATED 324 10^3/uL (150-450); RED BLOOD COUNT 4.76 10^6/uL (4.00-5.40); WHITE BLOOD COUNT 6.7 10^3/uL (4.0-10.0)
[2021-09-14] MEDS ORDERED: ISOVUE-370 76% 100ML VIAL As Ordered ONE (14:25)
[2021-09-14 14:28] LABS: INR 0.98; PROTHROMBIN TIME 13.4 SECONDS (12.7-14.5)
[2021-09-14 14:29] LABS: PARTIAL THROMBOPLASTIN TIME 26.7 SECONDS (25.9-37.0)
[2021-09-14 14:40] LABS: CK-MB VALUE MASS < 1.0 NG/ML (<3.6); CPK CREATINE PHOSPHOKINASE 39 U/L (26-192); MB/CK RELATIVE INDEX 2.56 (< OR =4)
[2021-09-14 18:47] VITALS: BP 131/69
== END 2021-09-14 19:05 | disposition home or self-care (01) ==
LOC: M ED 13:26
DX: H53.9 Unspecified visual disturbance (principal); I10 Essential (primary) hypertension; F33.9 Major depressive disorder, recurrent, unspecified; F41.9 Anxiety disorder, unspecified; F43.10 Post-traumatic stress disorder, unspecified; G43.909 Migraine, unspecified, not intractable, without status migrainosus; Z86.69 Personal history of other diseases of the nervous system and sense organs; Z88.0 Allergy status to penicillin; Z88.8 Allergy status to other drugs, medicaments and biological substances; Z79.899 Other long term (current) drug therapy
CPT/HCPCS: 36415; 70450; 70496; 70498; 71045; 80047; 82550; 82553; 84484; 85025; 85610; 85730; 86850; 86900; 86901; 93005; 93041; 94760; 99285; Q9967

== ENCOUNTER → 2022-10-29 | Outpatient (CLI) | payer OTHER ==
[~2022-10-29] MED LIST changes: +METO1TAB87
[2022-10-29 11:02] LABS: CALCIUM LEVEL 9.2 MG/DL (8.5-10.1); CREATININE FOR GFR 1.04 MG/DL (0.55-1.30); GLOMERULAR FILTRATION RATE 59.5 (>51); POTASSIUM SERUM 4.4 MMOL/L (3.5-5.1)
== END ==
LOC: M LAB 10:14
PROVIDERS: ATTEND Physician Assistant
DX: G43.719 Chronic migraine without aura, intractable, without status migrainosus (principal)

== ENCOUNTER → 2022-10-31 | Outpatient (CLI) | payer OTHER ==
[~2022-10-31] MED LIST changes: +PROHANCE 279.3MG/ML 5ML VIAL As Ordered ONE
== END ==
LOC: M RAD 08:36
PROVIDERS: ATTEND Physician Assistant
DX: G43.719 Chronic migraine without aura, intractable, without status migrainosus (principal); G93.2 Benign intracranial hypertension
CPT/HCPCS: 70544; 70553; A9576

== ENCOUNTER → 2024-04-19 | Outpatient (CLI) | payer OTHER ==
[~2024-04-19] MED LIST changes: +BARIUM SULFATE 700 MG TABLET (E-Z-DISK) As Ordered ONE; +E-Z-GAS II EFFERVESCENT PACKET (SODIUM BICARB./CITRIC ACID/SIMETHICONE) As Ordered ONE; +E-Z-HD 98% w/w 340GM SUSP BTL As Ordered ONE; +E-Z-PAQUE 96% w/w SUSP 176GM BTL As Ordered ONE; +POTA-298 PO; -POTA1TAB14 PO; -PROHANCE 279.3MG/ML 5ML VIAL As Ordered ONE
== END ==
LOC: M RAD 08:31
PROVIDERS: ATTEND Internal Medicine Gastroenterology
DX: R13.10 Dysphagia, unspecified (principal); R12 Heartburn; R93.3 Abnormal findings on diagnostic imaging of other parts of digestive tract

== ENCOUNTER → 2024-10-30 | Outpatient (CLI) | payer OTHER ==
[~2024-10-30] MED LIST changes: -BARIUM SULFATE 700 MG TABLET (E-Z-DISK) As Ordered ONE; -E-Z-GAS II EFFERVESCENT PACKET (SODIUM BICARB./CITRIC ACID/SIMETHICONE) As Ordered ONE; -E-Z-HD 98% w/w 340GM SUSP BTL As Ordered ONE; -E-Z-PAQUE 96% w/w SUSP 176GM BTL As Ordered ONE
== END ==
LOC: M PLAIMG 10:07
PROVIDERS: ATTEND Registered Nurse
DX: R06.02 Shortness of breath (principal)